=== PATIENT | female | born 2000 | race Caucasian/White ===

== ENCOUNTER 2024-07-29 17:43 | Emergency (ER) | payer BC, SELFPAY ==
[2024-07-29 17:50] VITALS: BP 124/72
[2024-07-29 18:07] LABS: % Basophils 0.7 % (0-2); % Eosinophils 2.1 % (0-6); % Immature Granulocytes 0.1 % (0-0.5); % Lymphocytes 31.4 % (20.5-51.1); % Monocytes 5.8 % (1.7-9.3); % Neutrophils 59.9 % (42.2-75.2); Absolute Basophils 0.1 10^3/uL (0-0.2); Absolute Eosinophils 0.2 10^3/uL (0-0.7); Absolute Monocytes 0.5 10^3/uL (0.1-0.6); Absolute Neutrophils 5.6 10^3/uL (1.4-6.5); Hematocrit 42.4 % (37.0-47.0); Hemoglobin 14.4 g/dL (12.0-16.0); Mean Corpuscular Hgb 29.4 pg (27.0-31.0); Mean Corpuscular Volume 86.5 fL (81.0-99.0); Mean Platelet Volume 10.8 fL (7.4-10.4); Nucleated Red Blood Cells % 0 %; Platelet Count 262 10^3/uL (130-400); Red Cell Dist. Width 13.2 % (11.5-14.5); White Blood Cell Count 9.4 10^3/uL (4.8-10.8)
[2024-07-29 18:17] LABS: INR 0.88; PT 12.4 Sec (11.4-14.6)
[2024-07-29 18:18] LABS: APTT 28.4 Sec (23.4-35.0)
[2024-07-29 18:19] LABS: HCG, Serum Qualitative Screen Negative
[2024-07-29 18:38] LABS: ALT (SGPT) 21 U/L (0-35); AST (SGOT) 24 U/L (14-36); Albumin 4.2 g/dl (3.5-5.0); Alkaline Phosphatase 102 U/L (38-126); Blood Urea Nitrogen 14 mg/dl (7-17); Calcium 9.5 mg/dl (8.4-10.2); Carbon Dioxide 28 mmol/L (22-30); Chloride 100 mmol/L (98-107); Glucose 87 mg/dl (70-99); Potassium 3.5 mmol/L (3.5-5.1); Sodium 138 mmol/L (135-145); Total Bilirubin 0.4 mg/dl (0.2-1.3); Total Protein 7.7 g/dl (6.3-8.2); eGFR > 60.00
[2024-07-29 19:16] VITALS: BP 114/69; BMI 30.8
--- NOTE | 2024-07-29 19:49 | ED.GENMED ---
History of Present Illness
General
Chief Complaint: Abdominal Pain
Source: patient
Time Seen by Provider: 07/29/24 19:13
History of Present Illness
History of Present Illness:
23-year-old female presents emergency room complaining of some nausea vomiting couple days ago. Since then she has been having some lower crampy lower abdominal pain. No constipation or diarrhea. Patient mostly concerned because she has not had a
menstrual period in 3 months. Patient is not using any form of control pill at this time. She denies any vaginal discharge. Patient took test at home and but it may have been faintly positive. Patient has been once
before had a miscarriage.()
Patient also noted that she has had several episodes of epistaxis from the left nare. No clear precipitating factor.
Phy Exam
Physical Exam
Physical Exam:
General: Awake, Alert, Oriented X3. No acute distress.
Vitals: unremarkable
Head: Atraumatic
Eyes: Pupils equal, EOMI
Throat: Airway intact, no exudates
Neck: Trachea midline
Lungs: Clear and equal b/l
Heart: Regular rate, no murmurs
Abd: Soft, mild tenderness bilateral lower quadrant, No pulsatile mass
Neuro: Nonfocal
Skin: Warm, dry, no rash
Extremities: pulses equal b/l, no edema
Course
Orders/Labs/Results
Orders:
Orders
07/29/24 17:53
Test Result ONCE
07/29/24 17:57
Complete Blood Count/With Diff Urgent
Comprehensive Metabolic Panel Urgent
HCG, Serum Qualitative Screen Urgent
PTT Urgent
Prothrombin Time Urgent
07/29/24 19:47
US Pelvis W Transvag Combined Urgent
Reason For Exam: pelvic pain
Abnormal Lab Results
07/29/24
17:57
MPV 10.8 H fL
(7.4-10.4)
07/29/24 17:57
07/29/24 17:57
Vital Signs
Initial and Last Documented VS:
Initial Vital Signs
Temp Pulse Resp BP Pulse Ox
97.5 F 63 18 124/72 100
07/29/24 17:50 07/29/24 17:50 07/29/24 17:50 07/29/24 17:50 07/29/24 17:50
Last Documented Vital Signs
Temp Pulse Resp BP Pulse Ox
97.5 F 78 18 114/69 100
07/29/24 17:50 07/29/24 19:16 07/29/24 19:16 07/29/24 19:16 07/29/24 19:16
MDM/Problems Addressed
Differential Diagnosis Includes:
Ectopic , ovarian cyst, UTI
MDM/Problems Addressed:
Patient presents with lower abdominal cramping. test is negative. Labs are reassuring. Ultrasound showed changes suggestive of polycystic ovarian syndrome. This would certainly explain irregular menstrual cycle. Patient is in the
process of making an appointment with a plug making operator. She is actually called the office and is waiting on a call back with the appointment. No evidence of an unstable process which would require hospitalization or intervention at this time.
Patient stable for discharge home and follow-up with [facility] as an outpatient.
*Radiology
Radiology exam reviewed: radiology read reviewed
*Pulse Oximetry
Patient hypoxic: no
*Critical Care Note
Total Time (30-74mins, 75-104mins- exclusive of procedures): Not Applicable
ED Attending Note
-
Portions of this chart may have been created with voice recognition software.� Occasional wrong word or��sound alike� substitutions may have occurred due to the inherent limitations of voice recognition software.
Discharge Plan
Departure
Patient Disposition: Home (Routine Discharge)
Date of Disposition: 07/29/24
Time of Disposition: 22:42
Patient with high blood pressure during this ER visit?: No
Condition: Good
Discharge Problem:
Gastroenteritis
Instructions: Viral gastroenteritis in adults, Abdominal Pain
Referrals:
NONE,* [Family Provider] -
Interventions
Interventions:
*Risk Screen - Suicide Last Done: 07/29/24 17:50
*General Assessment Last Done: 07/29/24 19:16
*Neglect/Abuse Screening Last Done: 07/29/24 19:16
*Nursing Disposition Last Done: 07/29/24 23:33
[facility]Fbjtnhzqmj Assessment Last Done: 07/29/24 19:20
Discharge Date and Time
Discharge Date/Time: 07/29/24 23:34
Print Language: HUNGARIAN
== END 2024-07-29 23:34 | disposition home or self-care (01) ==
LOC: EMR 17:43
PROVIDERS: Emergency Medicine; EMERGENCY PHYSICIAN Emergency Medicine
DX: K52.9 Noninfective gastroenteritis and colitis, unspecified (principal)
CPT/HCPCS: 99284; 76830; 76856; 80053; 84703; 85025; 85610; 85730